=== PATIENT | female | born 1945 | race Caucasian/White ===

== ENCOUNTER → 2016-04-17 | Day surgery (SDC) | payer BC ==
[2016-04-17] VITALS (10 sets, daily range): BP systolic 88–125; BP diastolic 43–69; PULSE 66–85; TEMP 36.5–36.9; O2SAT 6–99; Ht 165.1 cm; Wt 75.0 kg
[~2016-04-17] VITALS: Ht 165.1 cm; Wt 75.0 kg
[~2016-04-17] MED LIST: ACETAMINOPHEN 500 MG TAB PO ONE; ACETAMINOPHEN 500 MG TAB PO PRN; AMIT-203 PO; AMIT25TA9 PO; AMOX500C3 PO; BIOT1CAP8 PO; BIOT1TAB5 PO; CALC-279 PO; CLB/200 PO; CLB100 PO; CLBPO15 TOP; DOCU-94 PO; FLUO20CA35 PO; FLUO40CA8 PO; LINA1CAP PO; LINA1CAP2 PO; LORA-741 PO; MISCCAP80 PO; PEDICHW44 PO; PRZC/10 PO; RTL20 PO; TAPE50TA PO; VORT1TAB3 PO
--- NOTE | 2016-04-17 10:18 | Discharge Instructions ---
Discharge Instructions Procedure Procedure Date: Apr 17, 2016. Reason for visit: Lumbar Spinal Stenosis. Discharge Discharge Date: Apr 17, 2016. Discharge Diagnosis: post lumbsr myelogram Instructions Activity Recommendations: 1 Day-May resume regular activity, 48 Hours of decreased exertion, 1 Day with no exercise/sex/sports, 1 Day with no driving/ machine use Return to School/Work: no limitations Recommended Home Diet: Resume Previous Diet Allergies Coded Allergies: Codeine (Verified Allergy, Unknown, itching, rash, 04/17/16) Prednisone (Verified Allergy, Unknown, rash,itching, 04/17/16) Morphine (Verified Adverse Reaction, Intermediate, ITCHING, rash, 04/17/16) [place] Recommendations: Call your doctor if: * Temperature above 101 degrees * Pain not relieved by pain medicine ordered * There is increased drainage or redness from any incision * You have any unanswered questions or concerns. Your Doctors Instructions noted above were prepared by provider Lev Coffman. Patient Signature Section: Patient Instructions Signature Page Dixie Cassidy Patient (or Guardian) Signature/Date: I have read and understand the instructions given to me by my caregivers. Caregiver/RN/Doctor Signature/Date: The above-named patient and/or guardian has received patient instructions on this date. + Original Patient Signature Page (only) stays with chart. Please make copy for patient.
--- NOTE | 2016-04-17 10:33 | DIAGNOSTIC IMAGING REPORT ---
Lumbar myelogram Myelogram, super/inter LUMBAR CLINICAL HISTORY: MD SAUNDERS back pain. Neuropathy. TECHNIQUE: Administration of nonionic contrast following placement of the needle to the L4-L5 level lumbar spine. COMPARISON STUDY: None FINDINGS: Findings consistent with extensive L2-S1 laminectomy and fusion. Minimal grade 1 retrolisthesis L2 on L3. IMPRESSION: Lumbar laminectomy and fusion. Successful myelogram. No major narrowing of the spinal canal by plain film imaging. Reference is made to CT exam to follow Electronically signed by: Lev Coffman M.D. 04/17/2016 10:32 AM Dictated Date/Time: 04/17/2016 10:30 AM
--- NOTE | 2016-04-17 10:41 | DIAGNOSTIC IMAGING REPORT ---
Lumbar spine CT post myelography LUMBAR SPINE WITH CLINICAL HISTORY: MYELOGRAM back pain. Neuropathy. TECHNIQUE: Transaxial acquisition with multi axial reformatted images. COMPARISON STUDY: None FINDINGS: L1-L2: : No evidence of disc herniation or spinal stenosis. L2-L3 Posterior laminectomy and fusion . No evidence of spinal stenosis. L3-L4: No evidence of disc herniation or spinal stenosis. Posterior laminectomy and fusion. L4-L5: No evidence of disc herniation or spinal stenosis. Posterior decompression laminectomy and fusion L5-S1: Posterior disc bulging component. Sac, however shows no significant impact. Findings of successful posterior decompression laminectomy and fusion. IMPRESSION: 1. Capacious spinal canal with no evidence for compromise 2. Posterior laminectomy and fusion from L2 through S1 appearing stable. 3. Posterior bulging disc L5-S1 show narrowing no significant impact with the thecal sac Electronically signed by: Lev Coffman M.D. 04/17/2016 10:39 AM Dictated Date/Time: 04/17/2016 10:32 AM
== END | disposition home or self-care (01) ==
LOC: C.ACU 07:59
PROVIDERS: ATTEND Orthopaedic Surgery Orthopaedic Surgery of the Spine
DX: M48.06 Spinal stenosis, lumbar region (principal)

== ENCOUNTER → 2016-05-15 | Outpatient (CLI) | payer BC ==
[~2016-05-15] MED LIST changes: -ACETAMINOPHEN 500 MG TAB PO ONE; -ACETAMINOPHEN 500 MG TAB PO PRN; -PRZC/10 PO
== END | disposition home or self-care (01) ==
LOC: C.LAB1850 16:23
PROVIDERS: ATTEND Anesthesiology
DX: Z01.812 Encounter for preprocedural laboratory examination (principal)

== ENCOUNTER → 2016-05-18 | Outpatient (CLI) | payer BC ==
[~2016-05-18] MED LIST changes: +GADAVIST IV PRN
--- NOTE | 2016-05-18 14:02 | DIAGNOSTIC IMAGING REPORT ---
LUMBAR SPINE MRI WITH AND WITHOUT CONTRAST HISTORY: Pain LUMBAR Radiculopathy, lumbar POST LAMINECTOMY SYND. TECHNIQUE: Multiplanar multisequence MRI of the lumbar spine was performed both before and after the intravenous administration of contrast. COMPARISON: None. FINDINGS: For the purpose of the report the L5-S1 disc space will be located on axial image 27 of 30. Findings consistent with posterior laminectomy and fusion from L2 through S1. Moderate degenerative disc change throughout the entire lumbar region. Based on the sagittal images no significant disc herniation. L1-L2: No significant central canal or neural foraminal narrowing. L2-L3: No significant central canal or neural foraminal narrowing. L3-L4: No significant central canal or neural foraminal narrowing. L4-L5: No significant central canal or neural foraminal narrowing. L5-S1: Minimal postprocedural scar posterior to the S1 segment. There is no significant impact upon the thecal sac. IMPRESSION: Postoperative change as noted. Degenerative disc change. No evidence for recurrent disc herniation or significant component of spinal stenosis Electronically signed by: Lev Coffman M.D. 05/18/2016 2:01 PM Dictated Date/Time: 05/18/2016 1:54 PM
== END | disposition home or self-care (01) ==
LOC: C.MRIBC 12:41
PROVIDERS: ATTEND Anesthesiology
DX: M54.16 Radiculopathy, lumbar region (principal); M96.1 Postlaminectomy syndrome, not elsewhere classified; M48.06 Spinal stenosis, lumbar region

== ENCOUNTER → 2016-10-29 | Day surgery (SDC) | payer BC ==
[2016-10-21 13:31] VITALS: BMI 26.0
[~2016-10-29] VITALS: Ht 167.6 cm; Wt 72.3 kg
[~2016-10-29] MED LIST changes: -AMIT25TA9 PO; -BIOT1TAB5 PO; -CLB/200 PO; -FLUO20CA35 PO; -GADAVIST IV PRN; +LIDOCAINE HCL 2% 2 ML VIAL (20MG/ML) ONE; -LINA1CAP PO; +ONDANSETRON INJ 2 MG/ML 2 ML VIAL IV PRN; +PROPOFOL IV EMULSION 10 MG/ML 20 ML VIAL IV ONE; +SODIUM CHLORIDE 0.9% 500ML 500 ML IV ONE; -VORT1TAB3 PO
[2016-10-29 08:06] VITALS: Ht 167.6 cm; Wt 72.3 kg
--- NOTE | 2016-10-29 08:17 | Endo History and Physical ---
History & Physical Date of Service: Oct 29, 2016. Chief Complaint: Colon polyp surveillance Referring Physician: History of Present Illness Patient for colorectal cancer screening. She has a history of colonic polyps. She has no specific symptoms today. Past Medical History Arthritis, Anxiety, High Cholesterol, Depression Past Surgical History Hx Cardiac Surgery: No Hx Internal Defibrillator: No Hx Pacemaker: No Hx Abdominal Surgery: Yes (GASTRIC BYPASS, HYSTERECTOMY) Hx of Implantable Prosthesis: No Hx Post-Op Nausea and Vomiting: No Hx Cancer Surgery: No Hx Thoracic Surgery: No Hx Orthopedic: Yes (LUMBAR FUSION X 2) Hx Urinary Tract Surgery: No Family History Colon CA Social History Smoking Status: Never Smoker Hx Substance Use: No Hx Alcohol Use: Yes (OCCASIONALLY) Allergies Coded Allergies: Codeine (Verified Allergy, Unknown, itching, rash, 10/29/16) Prednisone (Verified Allergy, Unknown, rash,itching, 10/29/16) Morphine (Verified Adverse Reaction, Intermediate, ITCHING, rash, 10/29/16) Current Medications Reported Home Medications Medications Dose Route/Sig Max Daily Dose Days Date Category Amoxil (Amoxicillin) 500 Mg Cap 500 Mg PO TID 10/29/16 Reported Calcium Citrate + D (Calcium Citrate-Vitamin D) 1 Tab Tab 2 Tab PO BID 10/21/16 Reported Colace (Docusate Sodium) 100 Mg Cap 1 Cap PO BID PRN 30 10/21/16 Reported Biotin 1 Mg Cap 1 Cap PO QAM 10/21/16 Reported Probiotic (Probiotic Product) 1 Cap Cap 2 Cap PO QAM 10/21/16 Reported Celebrex (Celecoxib) 100 Mg Cap 1 Cap PO QAM 30 10/21/16 Reported Nucynta (Tapentadol Hcl) 50 Mg Tab 25 Mg PO BID 10/21/16 Reported Clobetasol Propionate 45 Appln/15 Gm Oint 1 Appln TOP 3XWK 30 10/21/16 Reported Linzess (Linaclotide) 290 Mcg Cap 1 Cap PO QAM 10/21/16 Reported Elavil (Amitriptyline HCl) 25 Mg Tab 1 Tab PO HS 10/21/16 Reported Prozac (Fluoxetine HCl) 40 Mg Cap 40 Mg PO QAM 10/21/16 Reported Ritalin (Methylphenidate HCl) 20 Mg Tab 20 Mg PO TID 04/17/16 Reported Ativan (Lorazepam) 0.5 Mg Tab 0.5 Mg PO HS PRN 03/20/13 Reported Flintstones Plus Iron (Pediatric Multiple Vitamins W/) 1 Chw Chw 1 Tablet PO BID 08/16/12 Reported Vital Signs Weight (Kilograms): 72.27 Height (Feet): 5 Height (Inches): 6 Physical Exam General Appearance: no apparent distress Respiratory/Chest: Auscultation: breath sounds normal Cardiovascular: Heart Auscultation: RRR Abdomen: Inspection & Palpation: soft Assessment and Plan Patient for colorectal cancer screening today. We have discussed the risks and benefits of colonoscopy to include bleeding, infection, perforation and pain.
--- NOTE | 2016-10-29 09:00 | Discharge Instructions ---
Endoscopy Patient Instructions Date / Procedure(s) Performed Oct 29, 2016. Colonoscopy Allergy Information Coded Allergies: Codeine (Verified Allergy, Unknown, itching, rash, 10/29/16) Prednisone (Verified Allergy, Unknown, rash,itching, 10/29/16) Morphine (Verified Adverse Reaction, Intermediate, ITCHING, rash, 10/29/16) Discharge Date / Findings Oct 29, 2016. Internal hemorrhoids Medication Instructions Stopped Medication(s): RITILIAN Reported Home Medications Medications Dose Route/Sig Max Daily Dose Days Date Category Amoxil (Amoxicillin) 500 Mg Cap 500 Mg PO TID 10/29/16 Reported Calcium Citrate + D (Calcium Citrate-Vitamin D) 1 Tab Tab 2 Tab PO BID 10/21/16 Reported Colace (Docusate Sodium) 100 Mg Cap 1 Cap PO BID PRN 30 10/21/16 Reported Biotin 1 Mg Cap 1 Cap PO QAM 10/21/16 Reported Probiotic (Probiotic Product) 1 Cap Cap 2 Cap PO QAM 10/21/16 Reported Celebrex (Celecoxib) 100 Mg Cap 1 Cap PO QAM 30 10/21/16 Reported Nucynta (Tapentadol Hcl) 50 Mg Tab 25 Mg PO BID 10/21/16 Reported Clobetasol Propionate 45 Appln/15 Gm Oint 1 Appln TOP 3XWK 30 10/21/16 Reported Linzess (Linaclotide) 290 Mcg Cap 1 Cap PO QAM 10/21/16 Reported Elavil (Amitriptyline HCl) 25 Mg Tab 1 Tab PO HS 10/21/16 Reported Prozac (Fluoxetine HCl) 40 Mg Cap 40 Mg PO QAM 10/21/16 Reported Ritalin (Methylphenidate HCl) 20 Mg Tab 20 Mg PO TID 04/17/16 Reported Ativan (Lorazepam) 0.5 Mg Tab 0.5 Mg PO HS PRN 03/20/13 Reported Flintstones Plus Iron (Pediatric Multiple Vitamins W/) 1 Chw Chw 1 Tablet PO BID 08/16/12 Reported Provider Instructions Activity Restrictions - No exercising or heavy lifting for 24 hours. - Do not drink alcohol the day of the procedure. - Do not drive a car or operate machinery until the day after the procedure. - Do not make any important decisions or sign important papers in 24 hours after the procedure. Following Day: - Return to full activity which may include returning to work/school. Diet Start your diet with liquids and light foods (jello, soup, juice, toast). Then eat your usual diet if not nauseated. Treatment For Common After Affects For mild abdominal pain, bloating, or excessive gas: - Rest - Eat lightly - Lie on right side Follow-Up Information Follow-up with DR TAVARES as scheduled Repeat colonoscopy in one year due to suboptimal preparation. We will plan to do a 2 day prep with her next exam. Anesthesia Information What You Should Know You have had a procedure that required some medicine to reduce anxiety and discomfort. This treatment is called moderate sedation. After receiving the treatment, you may be sleepy, but you will be able to breathe on your own. The effects of the treatment may last for several hours. Follow these instructions along with Activity/Diet recommendations noted above: * Do NOT do anything where dizziness or clumsiness would be dangerous. * Rest quietly at home today, then you can be up and about tomorrow. * Have a responsible person stay with you the rest of today. * You may have had an I.V. today. If so, you may take the dressing off later today. Recommendations Call your doctor if: * Trouble breathing * Continuous vomiting for more than 24 hours * Temperature above 101 degrees * Severe abdominal pain or bloating * Pain not relieved by pain medicine ordered * There is increased drainage or redness from any incision * A large amount of rectal bleeding greater than 2-3 tablespoons. (If you had a polyp/s removed or have hemorrhoids, a small amount of blood - from the rectum is to be expected.) * You have any unanswered questions or concerns. IN THE EVENT OF A SERIOUS EMERGENCY, GO TO THE NEAREST EMERGENCY ROOM Your discharge instructions were prepared by provider Amaris Pemberton. Patient Instructions Signature Page Dixie Cassidy Patient (or Guardian) Signature/Date: I have read and understand the instructions given to me by my caregivers. Caregiver/RN/Doctor Signature/Date: The above-named patient and/or guardian has received patient instructions on this date. + Original Patient Signature Page (only) stays with chart. Please make copy for patient.
--- NOTE | 2016-10-29 09:21 | Anesthesiology Progress Note ---
Anesthesia Post Op Note Date & Time Oct 29, 2016 at 09:21 Vital Signs Pain Intensity: 7 Vital Signs Past 12 Hours Date Time Temp Pulse Resp B/P (MAP) Pulse Ox O2 Delivery O2 Flow Rate FiO2 10/29/16 09:16 65 16 116/73 (87) 98 Room Air 10/29/16 09:01 64 16 119/70 (86) 98 Room Air 10/29/16 08:16 36.6 69 16 115/69 (84) 98 Room Air Notes Mental Status: alert / awake / arousable, participated in evaluation Pt Amnestic to Procedure: Yes Nausea / Vomiting: adequately controlled Pain: adequately controlled Airway Patency, RR, SpO2: stable & adequate BP & HR: stable & adequate Hydration State: stable & adequate Anesthetic Complications: no major complications apparent
[2016-10-29 09:31] VITALS: BP 129/50; PULSE 75; O2SAT 100
--- NOTE | 2016-10-30 00:14 | GI REPORT ---
Procedure Date: 10/29/2016 8:14 AM Procedure: Colonoscopy Indications: High risk colon cancer surveillance: Personal history of colonic polyps Medicines: Monitored Anesthesia Care Complications: No immediate complications. Estimated blood loss: Minimal. Estimated Blood Loss: Estimated blood loss: none. Procedure: Pre-Anesthesia Assessment: - Prior to the procedure, a History and Physical was performed, and patient medications, allergies and sensitivities were reviewed. The patient's tolerance of previous anesthesia was reviewed. - The risks and benefits of the procedure and the sedation options and risks were discussed with the patient. All questions were answered and informed consent was obtained. - Patient identification and proposed procedure were verified prior to the procedure by the physician, the nurse and the coal mine inspector. The procedure was verified in the procedure room. - Pre-procedure physical examination revealed no contraindications to sedation. - ASA Grade Assessment: II - A patient with mild systemic disease. - After reviewing the risks and benefits, the patient was deemed in satisfactory condition to undergo the procedure. - Immediately prior to administration of medications, the patient was re-assessed for adequacy to receive sedatives. - The heart rate, respiratory rate, oxygen saturations, blood pressure, adequacy of pulmonary ventilation, and response to care were monitored throughout the procedure. - The physical status of the patient was re-assessed after the procedure. After I obtained informed consent, the scope was passed under direct vision. Throughout the procedure, the patient's blood pressure, pulse, and oxygen saturations were monitored continuously. The scope was introduced through the anus and advanced to the terminal ileum. The colonoscopy was performed without difficulty. The patient tolerated the procedure well. The quality of the bowel preparation was fair. Findings: The perianal and digital rectal examinations were normal. Pertinent negatives include normal sphincter tone. The terminal ileum appeared normal. Internal hemorrhoids were found during retroflexion. The hemorrhoids were mild. The exam was otherwise without abnormality. Impression: - The examined portion of the ileum was normal. - Internal hemorrhoids. - The examination was otherwise normal. - No specimens collected. Recommendation: - Discharge patient to home (ambulatory). - Advance diet as tolerated today. - Repeat colonoscopy in 1 year because the bowel preparation was suboptimal. Amaris Pemberton D.O. Amaris Pemberton, 10/29/2016 8:59:25 AM This report has been signed electronically. Note Initiated On: 10/29/2016 8:14 AM I attest to the content of the Intraoperative Record and orders documented therein, exceptions below
== END | disposition home or self-care (01) ==
LOC: C.GI 07:26
PROVIDERS: ATTEND Internal Medicine Gastroenterology
DX: Z12.11 Encounter for screening for malignant neoplasm of colon (principal); Z86.010 Personal history of colon polyps; K64.8 Other hemorrhoids; M19.90 Unspecified osteoarthritis, unspecified site; E78.00 Pure hypercholesterolemia, unspecified; Z98.84 Bariatric surgery status; Z90.710 Acquired absence of both cervix and uterus; Z80.0 Family history of malignant neoplasm of digestive organs; Z98.1 Arthrodesis status; F41.9 Anxiety disorder, unspecified; F32.9 Major depressive disorder, single episode, unspecified; K21.9 Gastro-esophageal reflux disease without esophagitis; K85.90 Acute pancreatitis without necrosis or infection, unspecified

== ENCOUNTER → 2016-12-17 | Outpatient (CLI) | payer BC ==
[~2016-12-17] MED LIST changes: -LIDOCAINE HCL 2% 2 ML VIAL (20MG/ML) ONE; -ONDANSETRON INJ 2 MG/ML 2 ML VIAL IV PRN; -PROPOFOL IV EMULSION 10 MG/ML 20 ML VIAL IV ONE; -SODIUM CHLORIDE 0.9% 500ML 500 ML IV ONE
[2016-12-17 16:53] LABS: URINE APPEARANCE CLEAR (CLEAR); URINE BILIRUBIN NEG (NEG); URINE COLOR YELLOW; URINE NITRITE NEG (NEG); URINE PH 6.5 (4.5-7.5); URINE SPECIFIC GRAVITY 1.009 (1.000-1.030); UROBILINOGEN NEG (NEG)
[2016-12-17 16:54] LABS: BASO % 0.7 %; BASO ABS # 0.05 K/uL (0-0.2); COMPLETE YES; HEMATOCRIT 39.2 % (37-47); IG% 0.1 %; LYMPH % 35.1 %; LYMPH ABS # 2.43 K/uL (1.2-3.4); MEAN CELL VOLUME 88.1 fL (80-100); MEAN CORPUSCULAR HEMOGLOBIN 29.7 pg (25-34); MEAN CORPUSCULAR HGB CONC 33.7 g/dl (32-36); MEAN PLATELET VOLUME 9.8 fL (7.4-10.4); MONO % 5.8 %; NEUT % 56.3 %; PLATELET COUNT 259 K/uL (130-400); RED BLOOD COUNT 4.45 M/uL (4.2-5.4); WHITE BLOOD COUNT 6.93 K/uL (4.8-10.8)
[2016-12-17 16:58] LABS: MANUAL MICROSCOPIC REQUIRED? NO; REVIEW REQ? NO
== END | disposition home or self-care (01) ==
LOC: C.LAB 15:38
PROVIDERS: ATTEND Physician Assistant
DX: Z98.84 Bariatric surgery status (principal); M54.5 Low back pain; M54.6 Pain in thoracic spine; Z01.812 Encounter for preprocedural laboratory examination

== ENCOUNTER → 2017-02-10 | Outpatient (CLI) | payer BC ==
[~2017-02-10] MED LIST changes: -AMOX500C3 PO
[2017-02-10 12:43] LABS: BASO % 0.7 %; BASO ABS # 0.04 K/uL (0-0.2); COMPLETE YES; EOS % 1.8 %; HEMATOCRIT 44.7 % (37-47); LYMPH % 34.9 %; LYMPH ABS # 2.09 K/uL (1.2-3.4); MEAN CELL VOLUME 90.3 fL (80-100); MEAN CORPUSCULAR HEMOGLOBIN 30.3 pg (25-34); MEAN CORPUSCULAR HGB CONC 33.6 g/dl (32-36); MONO % 8.5 %; NEUT % 54.1 %; PLATELET COUNT 284 K/uL (130-400); RED BLOOD COUNT 4.95 M/uL (4.2-5.4); WHITE BLOOD COUNT 5.98 K/uL (4.8-10.8)
[2017-02-10 13:12] LABS: URINE APPEARANCE CLEAR (CLEAR); URINE BILIRUBIN NEG (NEG); URINE COLOR YELLOW; URINE NITRITE NEG (NEG); URINE SPECIFIC GRAVITY 1.017 (1.000-1.030); UROBILINOGEN NEG (NEG)
[2017-02-10 13:14] LABS: MANUAL MICROSCOPIC REQUIRED? NO; REVIEW REQ? NO
== END | disposition home or self-care (01) ==
LOC: C.LABPVFM 09:49
PROVIDERS: ATTEND Physician Assistant
DX: Z01.812 Encounter for preprocedural laboratory examination (principal); Z98.84 Bariatric surgery status; M54.16 Radiculopathy, lumbar region

== ENCOUNTER → 2017-02-15 | Outpatient (CLI) | payer BC ==
--- NOTE | 2017-02-15 10:13 | DIAGNOSTIC IMAGING REPORT ---
THORACOLUMBAR SPINE 2 VIEWS CLINICAL HISTORY: SCS TRIAL lead position COMPARISON STUDY: 10/12/2015 FINDINGS: Placement of an epidural stimulator. Superior extent of the lead is at the level of the superior endplate of T9. Stable postoperative changes of the lumbar spine are again noted. IMPRESSION: Unipolar lead placed at the level of T9 the thoracic spine. The above report was generated using voice recognition software. It may contain grammatical, syntax or spelling errors. Electronically signed by: Lev Coffman M.D. 02/15/2017 10:11 AM Dictated Date/Time: 02/15/2017 10:10 AM
== END | disposition home or self-care (01) ==
LOC: C.RADBC 09:39
PROVIDERS: ATTEND Anesthesiology
DX: Z97.8 Presence of other specified devices (principal)

== ENCOUNTER → 2017-10-07 | Outpatient (CLI) | payer BC ==
[~2017-10-07] MED LIST changes: -AMIT-203 PO; -CLBPO15 TOP; -FLUO40CA8 PO; +FLUO60TA4 PO; -LORA-741 PO; -RTL20 PO; +STR40 PO; +TRAZ50TA35 PO
== END | disposition home or self-care (01) ==
LOC: C.LABPVFM 15:34
PROVIDERS: ATTEND Physician Assistant Medical
DX: Z04.9 Encounter for examination and observation for unspecified reason (principal); Z01.812 Encounter for preprocedural laboratory examination; Z98.84 Bariatric surgery status; G89.4 Chronic pain syndrome

== ENCOUNTER → 2017-10-12 | Day surgery (SDC) | payer BC ==
[2017-09-10 09:32] VITALS: BMI 25.0
[2017-09-13 12:20] VITALS: BMI 25.0
--- NOTE | 2017-09-13 13:23 | PAT Medication Instructions ---
Service Date Sep 13, 2017. Current Home Medication List Atomoxetine (Strattera), 1 CAP PO QAM Biotin (Biotin), 1 CAP PO QAM Calcium Citrate-Vitamin D (Calcium Citrate + D), 2 TAB PO BID Celecoxib (Celebrex), 1 CAP PO QAM Docusate Sodium (Colace), 1 CAP PO BID PRN for Constipation Fluoxetine HCl (Fluoxetine), 1 TAB PO QAM Linaclotide (Linzess), 1 CAP PO QAM Pediatric Multiple Vitamins W/ (Flintstones Plus Iron), 1 TABLET PO BID Probiotic Product (Probiotic), 2 CAP PO QAM Tapentadol Hcl (Nucynta), 25 MG PO BID Trazodone Hcl (Trazodone), 50 MG PO HS Medication Instructions For Your Scheduled Surgery - Hold the following medications the morning of surgery: Biotin (Biotin), 1 CAP PO QAM Calcium Citrate-Vitamin D (Calcium Citrate + D), 2 TAB PO BID Celecoxib (Celebrex), 1 CAP PO QAM (unless otherwise directed by your surgeon) Docusate Sodium (Colace), 1 CAP PO BID PRN for Constipation Linaclotide (Linzess), 1 CAP PO QAM Pediatric Multiple Vitamins W/ (Flintstones Plus Iron), 1 TABLET PO BID Probiotic Product (Probiotic), 2 CAP PO QAM - Take the following medications the morning of surgery with a sip of water: Atomoxetine (Strattera), 1 CAP PO QAM Fluoxetine HCl (Fluoxetine), 1 TAB PO QAM Tapentadol Hcl (Nucynta), 25 MG PO BID (if needed, may be taken p to four hours before surgery) - Take the following medications as scheduled the night before surgery: Calcium Citrate-Vitamin D (Calcium Citrate + D), 2 TAB PO BID Docusate Sodium (Colace), 1 CAP PO BID PRN for Constipation (if needed) Pediatric Multiple Vitamins W/ (Flintstones Plus Iron), 1 TABLET PO BID Tapentadol Hcl (Nucynta), 25 MG PO BID Trazodone Hcl (Trazodone), 50 MG PO HS If you have any questions please call us at [phone] or [phone] or [phone]
--- NOTE | 2017-09-28 14:26 | History and Physical ---
History & Physical Date of Service Sep 28, 2017. History & Physical Plan of care discussed with Dr. Chu CHIEF COMPLAINT: Chronic neuropathic pain in left lower extremity HISTORY OF PRESENT ILLNESS: Mrs. Cassidy is a 72 y/o white female that is well known to the [facility] with a history of chronic neuropathic pain of the left lower extremity states post L2-S1 lumbar fusion performed by Dr. Knutson in 2014. Axial pain is 25% and radicular pain is 75%. She reports low back pain and radicular pain along the left leg on the medial aspect of the thigh. She has diminished the use of Nucynta to 25mg twice daily which is moderately efficacious. Pain is rated 5/10 at its best and 8/10 at its worst. Pain is aggravated with sitting and walking. She denies any bowel/ bladder incontinence, saddle anesthesia, foot drop, leg weakness, or falls. PAST MEDICAL HISTORY: 1. Osteoarthritis 2. Anxiety disorder 3. Dyslipidemia 4. Depressive disorder 5. PTSD secondary to son committing suicide PAST SURGICAL HISTORY: 1. Hysterectomy 2. L2 through S1 spine surgery 3. 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 No tobacco or illicit drug use. She will drink a glass of wine occasionally ALLERGIES: Codeine, prednisone, morphine MEDICATIONS: 1. Strattera 40 mg daily 2. Biotin 1 capsule daily 3. Calcium citrate and vitamin D 2 tablets twice daily 4. Celebrex 100 mg daily 5. Colace 100 mg twice daily 6. Fluoxetine 60 mg daily 7. Linaclotide 290 mcg daily 8. Multivitamin daily 9. Probiotic 2 tablets daily 10. Nucynta 25 mg twice daily 11. Trazodone 50 mg at bedtime REVIEW OF SYSTEMS: Denies any constitutional, cardiac, pulmonary, neurological, GI, , extremity, endocrine, neuro, ENT, dermatological, or musculoskeletal complaints other than stated in HPI PHYSICAL EXAMINATION: VITAL SIGNS: Per admission GENERAL: This is a 72 y/o white female that appears her stated age. In no acute distress. HEAD: Normocephalic; atraumatic. EYES: Pupils are round, equal, and reactive to light; EOM intact. ENT: No external ear discharge or lesions. No rhinorrhea or epistaxis. No mucosal lesions. NECK: Full ROM; trachea is midline; no TTP; no cervical lymphadenopathy. CARDIO: Regular rate and rhythm. No murmurs, rubs, or gallops. PULM: Clear to auscultation. No wheezes, rales, or rhonchi. CHEST: Regular chest respiration and excursion. EXTREMTIES: 5/5 strength of lower extremities. Negative SLR bilaterally. No TTP. Distal sensation and pulses intact bilaterally. BACK: Decreased ROM in all planes. There is a large well healed surgical incision of the lumbar midline. No midline or facet tenderness. No SI joint tenderness. Mild bilateral upper gluteal spasm. NEURO: CN II-XII grossly intact with no focal deficits noted. AAO x 3. SKIN: No lesions, erythema, or rashes noted. ASSESSMENT: Chronic intractable neuropathic pain of left lower extremity secondary to lumbar post laminectomy syndrome TREATMENT: Patient has failed multiple injections including transformational epidural steroid injection and she already has L2-S1 fused. She did have a spinal cord stimulator trial performed on 02/15/17 and the patient reported 75% pain relief from the procedure. She was able to perform more of her daily activities. She states that the spinal cord stimulator trial covered all of the pain in her low back and into the leg. As the patient has failed multiple conservative treatments, a spinal cord stimulator implantation is recommended. Risks and benefits were reviewed with the patient. Procedure was explained to the patient and she understands. Patient will like to proceed with the surgery.
[~2017-10-12] VITALS: Ht 162.6 cm; Wt 69.4 kg
[~2017-10-12] MED LIST changes: +ATROPINE SULFATE 0.1 MG/ML 5ML SYR IV PRN; +BACITRACIN 50000 UNIT VIAL ONE; +BUPIVACAINE/EPINEPHRINE 0.5% MPF 1:200,000 30 ML VIAL ONE; +CEFAZOLIN 2000 MG/60 ML D5W 50 ML IV SCH; +CEFAZOLIN SOD 2000MG/15 ML IV PUSH ONE; +EpHEDrine SULFATE INJ 50 MG/ML AMP IV PRN; +FENTANYL CITRATE INJ 50 MCG/1 ML 2 ML VIAL ONE; +HYDROmorphone INJ 2 MG/ML SYR/VIAL IV PRN; +LACTATED RINGER'S 1000ML 1,000 ML IV SCH; +LIDO 2%/EPINEPHRINE 1:100000 20 ML VIAL ONE; +LIDOCAINE HCL 1% 20 ML VIAL ONE; +LIDOCAINE HCL 2% 2 ML VIAL (20MG/ML) ONE; +MIDAZOLAM HCL 1 MG/ML 2ML VIAL ONE; +NEOMYCIN/POLYMYX/BACITR OINT 15 GM TUBE ONE; +ONDANSETRON INJ 2 MG/ML 2 ML VIAL IV PRN; +ONDANSETRON INJ 2 MG/ML 2 ML VIAL ONE; +PHENYLEPHRINE 100MCG/ML 5ML SYR IV PRN; +POVIDONE-IODINE OP SOLN 30 ML BTL ONE; +PROPOFOL IV EMULSION 10 MG/ML 20 ML VIAL ONE
[2017-10-12 08:24] VITALS: BP 150/78; PULSE 78; TEMP 36.6; O2SAT 99; Ht 162.6 cm; Wt 69.4 kg
--- NOTE | 2017-10-12 09:32 | History & Physical Bridge Note ---
H&P Re-Evaluation Bridge Note: I have examined the patient, reviewed the History & Physical and in the interval since the performance of the History & Physical I have noted the following changes of clinical significance: No changes noted. History reviewed, examination performed, pertinent laboratory and imaging studies reviewed. No contraindications noted to proceeding with the proposed procedure. Potential risks including infection, nerve injury, injury to the spinal cord with subsequent paralysis, postdural puncture headache, bleeding, hematoma or seroma formation, additional surgical procedures to address these complications, as well as failure to achieve complete relief of preoperative symptoms after the procedure were discussed with the patient. Risks associated with anesthesia required to perform this procedure were reviewed. Alternatives to this procedure were discussed with the patient. Patient's questions were answered. Patient gave informed consent and voices desire to proceed.
--- NOTE | 2017-10-12 12:30 | [facility] Operative Report ---
Operative Report Operative Date Oct 12, 2017. Pre-Operative Diagnosis Chronic intractable neuropathic pain of left lower extremity secondary to lumbar post laminectomy syndrome Post-Operative Diagnosis Chronic intractable neuropathic pain of left lower extremity secondary to lumbar post laminectomy syndrome Procedure(s) Performed Implantation of Spinal Cord Stimulator and Lead Placement Surgeon Dr. Jackson Overlay Operator Surgeon(s) none Estimated Blood Loss 5 cc Specimens none per surgeon Drains None Anesthesia Type MAC Disposition Recovery Room / PACU Description of Procedure INSERTION OF PERMANENT SPINAL CORD STIMULATOR LEAD AND PULSE GENERATOR PREOPERATIVE DIAGNOSIS: Lumbar postlaminectomy syndrome. POSTOPERATIVE DIAGNOSIS: Same. PROCEDURE: Spinal cord stim implantation of Medtronic 8-lead electrode and pulse generator. Fluoroscopic guidance and reprogramming and interrogation of the spinal cord stimulator. SURGEON: Dr. Jackson. ANESTHESIA: local. EPIDURAL SPACE ACCESS SITE: T12/L1. PROXIMAL LEAD POSITION: Superior edge of T8 vertebra. Patients diagnosis and the procedure were reviewed with the patient in detail. Possible risks and complications including infection, post dural puncture headache bleeding, damage to surrounding structures and increased pain were discussed. Alternative therapies were also reviewed. Dixie Cassidy was also counseled on need to curtail certain physical activities as well as having realistic expectations. Patients questions were answered and they agreed to proceed. Informed consent was obtained. Allergies and medication list was reviewed. The patient was brought to the procedure room and placed in prone position. Immediately prior to starting the procedure, a ``time out was conducted with the staff and the patient where the patient was identified, proposed procedure was verified, consent was reviewed and the proper site for the planned procedure was identified. Monitors used included intermittent blood pressure with automated device, continuous pulse oximetry and level of consciousness. Patient was given oral anxiolytic but was not not given any intravenous sedation and constant verbal contact was maintained throughout the procedure. Biplanar fluoroscopy was used to assist in placement of the needle as well as to evaluate final needle position prior to the injection. On examination, no signs of skin breakdown or infection were noted at the injection site. 2 gram cefazolin IV was given prior to the beginning the procedure. The patient's thoracolumbar spine was prepped with Duraprep followed by Betadine solution and draped in a sterile fashion with sterile surgical drapes and Ioban. Next the T12/L1 interspace was identified as the best possible location for epidural access. The skin and subcutaneous tissues over the right pedicle of L2 was anesthetized with 5 mL of 0.25% bupivacaine MPF with 1-400,[address] to the lamina. A 14 gauge Medtronic Tuohy epidural needle was inserted until it made contact with the lamina of L1 and ``walked off into the epidural space in a lateral view using the loss-of- resistance to a 20-gauge wire inserted through the epidural needle. Next an Octrode lead was passed through the Tuohy epidural needle and positioned in the left of the midline at the bottom of the T8 vertebra. At this point, the patient was questioned and coverage of the painful area was confirmed. No CSF, blood or paresthesia were noted during placement of the lead. The patient was then re-sedated and 0.5% bupivacaine-MPF mixed with 0.25% bupivacaine MPF with 1:200,000 epinephrine was utilized to anesthetize the skin and subcutaneous tissue for a right iliac crest region and midline at the site of the Touhy needle insertion. Both incisions were made using a 10 blade scalpel , electrocautery and Metzenbaum scissors. Hemostasis was achieved using cautery and the pocket incision was irrigated with Bacitracin infused saline. Next, a 1 inch incision was made with a 10 blade scalpel in the midline lumbr area in order to anchor the spinal cord stimulator leads to the supraspinous ligament. Hemostasis was achieved with electrocautery. The spinal cord stimulator lead was dissected out laterally utilizing Metzenbaum scissors. The stylet and needles were then. Next Medtronic anchors were placed over the spinal cord stimulator lead and with two 0 silk sutures to the supraspinous ligament. No complications were noted. Next the midline incision was irrigated with three bulb syringes of Bacitracin infused saline. Hemostasis was noted to be excellent. Then the spinal cord stimulator lead was passed with a passer from the midline incision to the pocket incision. Next, the ends of the spinal cord stimulato lead was cleansed and dried and then connected into the rechargeable [employer] battery generator. The lead was then secured with a screwdriver provided with a kit. The Medtronic quality control representative was present and reconfirmed appropriate impedance and positioning of the spinal cord stimulator lead. The battery was then placed inside the pocket with retention loops at both the midline incsion and behind the generator battery in the pocket incision. The skin and subcutaneous tissues were then closed with interrupted 2-0 Vicryl sutures followed by running subcuticular 3-0 Vicryl sutures then skin ravindra. Both incisions and skin were cleansed and dried then Xeroform dressing was placed over each incision site followed by 4 x 4 Xeroform gauze and Tegaderms. The patient was then emerged from IV sedation and he was placed back in the supine position with an abdominal binder in place. The patient was taken to the recovery room in stable condition without complications noted. The spinal cord stimulator was reprogrammed in recovery without complication. The patient was sent home with standard discharge instructions and will follow up in the pain clinic in 7 days for a wound check followed by staple removal in 14 days. I attest to the content of the Intraoperative Record and any orders documented therein. Any exceptions are noted below.
[2017-10-12 12:35] VITALS: BP 109/66; PULSE 78; TEMP 36.5; O2SAT 95
[2017-10-12 13:05] VITALS: BP 100/64; PULSE 80; TEMP 36.5; O2SAT 95
--- NOTE | 2017-10-12 13:12 | Discharge Instructions ---
Discharge Instructions Date of Service Oct 12, 2017. Visit Reason for Visit: Lumbar Radiculopathy Status Post Laminectomy ; Insertion of spinal cord stimulator system Discharge Discharge Diagnosis / Problem: Chronic radicular pain Discharge Goals Goal(s): Decrease discomfort, Improve function, Increase independence Medications Stopped Medications Name(s): None Activity Recommendations Activity Recommendations: no lifting of items 5lbs or more, no repetitive bending, no repetitive twists, no repetitive reaching over head, no showers for 3 days Exercise/Sports Limitations: until after follow-up appointment May Resume Sexual Activity: when tolerated Shower/Bathe: may shower/bathe in 3 days Anesthesia . Post Anesthesia Instructions: If you have had General Anesthesia or IV Sedation: * Do not drive today. * Resume driving when surgeon permits. * Do not make important decisions or sign legal documents today. * Call surgeon for: * Temperature elevations greater than 101 degrees F. * Uncontrollable pain. * Excessive bleeding. * Persistent nausea and vomiting. * Medication intolerance (nausea, vomiting or rash). * For nausea and vomiting use only clear liquids such as: tea, soda, bouillon until nausea subsides, then gradually increase diet as tolerated. * If you have any concerns or questions, call your surgeon's office. If physician is unavailable and it is an emergency, call 911 or go to the nearest emergency room. . Instructions Instructions / Follow-Up . * Change dressings daily. Apply sterile dry gauze. * Call [facility] [phone] or go to the nearest emergency room if he experience high fevers, new back pain, new neurological symptoms such as numbness or weakness in the lower extremity or new bowel bladder incontinence. Also of call if he experience a headache that is positional. * Wear abdominal binder. * No showers for 3 days. * Resume normal activity. No repetitive bending, twisting or reaching overhead for 2 weeks. Do not lift more than 5 pounds for 2 weeks. . Follow-Up Follow-Up: 1 week in office for wound check Diet Recommendations Home Diet: resume previous diet Procedures Procedures Performed: Implantation of Spinal Cord Stimulator and Lead Placement Pending Studies Studies pending at discharge: no Medical Emergencies . Who to Call and When: Medical Emergencies: If at any time you feel your situation is an emergency, please call 911 immediately. . Non-Emergent Contact Non-Emergency issues call your: Primary Care Provider Call Non-Emergent contact if: temperature is above 101 . . "Provider Documentation" section prepared by Sebastian Jackson. . [place] Drug Monitoring Program Search Results: patient reviewed within database
--- NOTE | 2017-10-12 13:14 | Anesthesiology Progress Note ---
Anesthesia Post Op Note Date & Time Oct 12, 2017 at 13:14 Vital Signs Pain Intensity: 0 Vital Signs Past 12 Hours Date Time Temp Pulse Resp B/P (MAP) Pulse Ox O2 Delivery O2 Flow Rate FiO2 10/12/17 12:35 36.5 78 16 109/66 95 Room Air 10/12/17 08:24 36.6 78 18 150/78 (102) 99 Room Air Notes Mental Status: alert / awake / arousable, participated in evaluation Pt Amnestic to Procedure: Yes Nausea / Vomiting: adequately controlled Pain: adequately controlled Airway Patency, RR, SpO2: stable & adequate BP & HR: stable & adequate Hydration State: stable & adequate Anesthetic Complications: no major complications apparent
== END | disposition home or self-care (01) ==
LOC: C.ACU 07:48
PROVIDERS: ATTEND Anesthesiology
DX: M96.1 Postlaminectomy syndrome, not elsewhere classified (principal); G89.28 Other chronic postprocedural pain; I10 Essential (primary) hypertension; Z88.5 Allergy status to narcotic agent; M19.90 Unspecified osteoarthritis, unspecified site; F41.9 Anxiety disorder, unspecified; E78.5 Hyperlipidemia, unspecified; F32.9 Major depressive disorder, single episode, unspecified